=== PATIENT | female | born 1985 | race Caucasian/White ===

== ENCOUNTER → 2025-02-04 09:58 | Outpatient (CLI) | payer OTHER, MEDICARE, SELFPAY ==
--- NOTE | 2025-02-04 10:07 | DI.CT.S_ITS ---
PROCEDURE: CT SOFT TISSUE NECK W CON INDICATIONS: mass of submandibular region TECHNIQUE: After the administration of intravenous contrast, 3.0 mm axial sections acquired from the sella to the aortic arch. 3 mm thick coronal and sagittal reformats were generated. For radiation dose reduction, the following was used: automated exposure control. COMPARISON: None. FINDINGS: Lymph nodes: Numerous submandibular and deep cervical lymph nodes are present but not enlarged. Largest is a level 2A node on the left measuring 1.5 x 0.8 cm. However, several bilateral axillary lymph nodes present as well measuring up to 1.4 x 1.1 cm Vessels: Visualized vasculature appears patent. Neck spaces: The oropharynx, nasopharynx, and pharynx demonstrate no mucosal lesions. The vocal cords, false vocal cords, pyriform sinuses, epiglottis, vallecula, and tongue base all appear normal. Extramucosal spaces appear unremarkable. Glands: Stippled calcification noted in both parotid glands. Palpable abnormality corresponds with the left submandibular gland which also has a normal appearance. Thyroid unremarkable. Miscellaneous: Visualized brain and orbits appear normal. Lung apices appear clear. Superficial soft tissues appear normal. Bones: No suspicious bony lesions. Visualized sinuses and mastoids appear unremarkable. IMPRESSION: Palpable area of concern corresponds with a normal appearing left submandibular gland. Bilateral axillary adenopathy and numerous nonenlarged deep cervical and submandibular lymph nodes. Differential would include systemic infectious /inflammatory process versus lymphoma Approved by: Ruslan Lew M.D. on 02/04/2025 at 13:57
[2025-02-04 10:37] LABS: Estimated Glomerular Filt Rate > 60 mL/min (>60)
== END ==
LOC: CT 10:05
PROVIDERS: Radiology Diagnostic Radiology; PCP Internal Medicine; Referring Provider Otolaryngology; Visit Provider Otolaryngology
DX: R22.0 Localized swelling, mass and lump, head (principal); R59.0 Localized enlarged lymph nodes; I10 Essential (primary) hypertension
CPT/HCPCS: 36415; 70491; 82565; Q9967

== ENCOUNTER → 2025-04-20 08:34 | Outpatient (CLI) | payer OTHER, SELFPAY ==
--- NOTE | 2025-04-21 12:47 | ST.SWALLOW ---
Visit Care Team Role Provider Type Cholo Cotton MD Primary Care Provider Physician Specialty: Internal Medicine Address: [address] [place] [address], [id number] Email: Tyrone Colindres MD Attending Provider Physician Referring Provider Specialty: Ear, Nose, Throat Address: [address] [place] [address], [id number] Email: [email or web address] Modified Barium Swallow Study [employer] Modified Barium Swallow Study Start: 04/21/25 11:47 Freq: Status: Active Protocol: Document 04/20/25 11:47 LNK (Rec: 04/21/25 12:46 LNK Desktop) Modified Barium Swallow Study Total Time Visit Start Time 09:00 Visit Stop Time 09:45 Total Visit Minutes 45 Referral Referring Physician Tyrone Colindres MD, ENT Reason for Referral dysphagia Setting Setting Outpatient Care Patient Information Identification Type Name,Date of Patient History Pt ws seen for a Modified barium Swallow Study with c/o foods getting stuck in her throat, daily, regurgitation of undigested foods and difficulty swallowing capsules ( getting stuck). Pt reported that daily she needs to drink water in order for the food to get unstuck. Pt has a PMH that included CREST ( calcinosis, Reynaud's, esophageal dysfunction, sclerodactyly and telangiectasia) syndrome, System Lupus, and Sjogern's syndrome. Pt also reported that, on 04/01/25, she was seen at the walk in clinic in [place] and was told she was having a TIA. She was encouraged to go to the ER, but did not follow up with that recommendation. Pt noted that TIA symptoms lasted 5 days. Subjective Observations Pt was seated in the fluoroscopy chair with directions and procedures described for her. She indicated she understood and agreed to proceed. Patient Positioning Position View Lat-A/P Imaging Lateral View Textures Administered Trials Presented Thin Liquid via Spoon (IDDSI 0 ),Thin Liquid via Cup (IDDSI 0 ),Regular (IDDSI 7) Barium Tablet Yes The IDDSI Framework Protocol: IDDSI.1 Oral Impairment Source: The Modified Barium Swallow Impairment Profile (MBSImP??) Lip Closure No labial escape Tongue Control During Bolus Hold Cohesive bolus between tongue to palatal seal Bolus Preparation/Mastication Slow prolonged chewing/mashing with complete re-collection Bolus Transport/Lingual Motion Brisk tongue motion Oral Residue Complete oral clearance Initiation of Pharyngeal Swallow Bolus head at pyriforms Additional Oral Impairment Observations Oral phase of swallow WFL *OME and DKS were observed to be WNL. *Dentition natural with several missing teeth ( all molars and some bicuspids) *Mastication observed with rotary chew pattern. *Good bolus formation, control and AP transition. *Velopharyngeal closure was WNL. Pharyngeal Impairment Source: The Modified Barium Swallow Impairment Profile (MBSImP??) Soft Palate Elevation No bolus between soft palate & pharyngeal wall Laryngeal Elevation Part.sup.move.thyroid cart/ part.approx.arytenoids to epiglot.petiole Anterior Hyoid Excursion Partial anterior movement Epiglottic Movement Complete inversion Laryngeal Vestibular Closure Complete; no air/contrast in laryngeal vestibule Pharyngeal Stripping Wave Present - complete Pharyngoesophageal Segment Opening Complete distention & complete duration; no obstruction of flow Tongue Base Retraction Wide column of contrast/air betwn tongue base & post. pharyngeal wall Pharyngeal Residue Collection of residue within/ on pharyngeal structures Location Valleculae Additional Pharyngeal Impairment Pharyngeal phase of swallow Observations WFL *Reduced base of tongue retraction strength *Reduced hyolaryngeal elevation and movement *Complete epiglottal inversion with good seal of the laryngeal vestibule *Contrast residue observed in the vallecula following all swallows A/P View Textures Administered Trials Presented Thin Liquid via Cup (IDDSI 0), Regular (IDDSI 7) The IDDSI Framework Protocol: IDDSI.1 A/P View Observations Pharyngeal Contraction Complete Esophageal Clearance Upright Position Esophageal retention w/ regtrograde flow below pharyngoesoph segment Vocal Fold Function Good Esophageal Function Slowed Clearing,Reverse Peristalsis,Narrowing Additional A-P Observations *UES and upper esophagus appeared to be WFL *Retro flow of esophageal contents noted *Significant narrowing of the lower esophagus from above diaphragm to the LES was observed *Prior trials of barium did not clear to stomach secondary to lower esophagus narrowing *Calibrated barium tablet did not enter the narrowed lower esophagus MBSS stopped with retained contrast/tablet in esophagus Clinical Impressions Dysphagia Type Esophageal Findings *Esophageal dysphagia due to significant narrowing of the distal esophagus *Esophageal dysfunction likely related to pt's CREST syndrome Recommend GI consult if appropriate Patient Appropriate for Therapy No Recommendations
== END ==
PROVIDERS: PCP Internal Medicine; Referring Provider Otolaryngology; Visit Provider Otolaryngology
DX: R13.19 Other dysphagia (principal); K22.2 Esophageal obstruction; K22.89 Other specified disease of esophagus
CPT/HCPCS: 74230; 92611